=== PATIENT | female | born 1990 | race Asian ===

== ENCOUNTER 2024-08-01 16:19 | Emergency (ER) | payer OTHER, SELFPAY ==
[2024-08-01 16:24] VITALS: BP 122/81
--- NOTE | 2024-08-01 16:24 | ED.GENMED ---
ED Provider Triage
<Nabila Phillips PA-C - Last Filed: 08/01/24 16:28>
-
Patient seen by provider in Triage?: Seen in Triage
Attestation: A medical screening examination has been initiated by a qualified medical provider. Based on the assessment performed at this time, it has been determined that an emergent medical condition may exist and the patient has been informed
that further medical evaluation and possible additional diagnostic testing may be needed.
HPI: 34yoF here with a 'bad reaction to Zepbound.' Last dose last night. C/o abd pain, diarrhea, nausea, and headache. Abdominal pain is located in the epigastrium and RLQ.
GENERAL: Alert , in no apparent distress
EYE: No visual abnormalities.
NECK: Trachea midline
ENT: No visible abnormalities.
LUNGS: No acute respiratory distress
NEUROLOGICAL: Alert and oriented
SKIN: Skin intact. No visible changes.
MUSCULOSKELETAL: Moving extremities normally
PSYCH: Normal and appropriate interaction.
This is a medical evaluation conducted in person to initiate diagnostic evaluation and provide initial therapeutics. Please see further documentation by the treating clinician.
Abdominal labs, HCG, and CT abdomen ordered. ODT Zofran for nausea.
History of Present Illness
<Nabila Phillips PA-C - Last Filed: 08/01/24 16:28>
General
Chief Complaint: Abdominal Pain
Time Seen by Provider: 08/01/24 17:30
<Gardenia Barraza PA-C - Last Filed: 08/01/24 21:01>
General
Source: patient
Exam Limitations: none
Nursing documentation reviewed up to this point in time: agreed with
History of Present Illness
History of Present Illness:
Patient is a 34-year-old female presenting to the emergency department for evaluation of abdominal discomfort and nausea. She states that she woke up from sleep at 4 AM with upper abdominal discomfort and nausea. She then had multiple episodes of
diarrhea. Patient denies any vomiting. Patient also reports a headache this morning which has improved somewhat throughout the day. She also had an intermittent 'sore 'sensation in her throat. At this time�patient states she still feels very
nauseous and has upper abdominal pain. No chest pain or shortness of breath.
Patient is on Zepbound and has been on same dose for 3 months. However�first she did miss her injection dose last week. She injected her usual dose last night prior to onset of symptoms.
Patient states she has never had a reaction to Zepbound before.
Review of Systems
<Gardenia Barraza PA-C - Last Filed: 08/01/24 21:01>
Review of Systems
Allergies reviewed?: Yes
All Other Systems: ROS reviewed and negative except as documented in HPI and ROS
Phy Exam
<Gardenia Barraza PA-C - Last Filed: 08/01/24 21:01>
Physical Exam
Physical Exam:
Vitals: Patient's vital signs are stable. Afebrile
General: Patient is well appearing, no acute distress. Nontoxic appearing
Skin: Warm and dry, no rashes or lesions
Head: Normocephalic, atraumatic
Eyes: Sclera nonicteric. EOMs intact. No nystagmus.
Throat: Uvula midline. No pharyngeal erythema or tonsillar edema/exudates. Protecting airway
Neck: Normal ROM, no cervical spine tenderness, no meningismus.
Cardiac: Regular rate and rhythm, no murmurs.
Pulm: Normal respiratory effort, no wheezes, rales, rhonchi heard on exam.
Abdomen: Abdomen soft. Mild tenderness in upper abdomen without rebound tenderness or guarding. No CVA tenderness. No tenderness McBurney's point.
Extremities: No evidence of cyanosis or edema. Palpable DP pulses
Neuro: AAOx3. Grossly intact.
Psychiatric: Normal affect.
Course
<Nabila Phillips PA-C - Last Filed: 08/01/24 16:28>
Orders/Labs/Results
Orders:
Orders
08/01/24 16:22
EKG [Electrocardiogram (*1)] Urgent
Reason for Study: Other
Other Reason for Exam: throat pain
08/01/24 16:23
EKG- Treatment ONCE
08/01/24 16:25
Ondansetron Orally Disint [Zofran Odt (Orally Disintegrating)] 4 mg PO NOW STA
08/01/24 16:26
CT Abd/pelvis W Iv Cont Urgent
Comment:
Reason For Exam: Epigastric pain, RLQ pain
Test Result ONCE
08/01/24 16:28
Ondansetron Orally Disint [Zofran Odt (Orally Disintegrating)] 4 mg .ROUTE .STK-MED ONE
08/01/24 17:46
0.9% Sodium Chloride 1000 ml [Nss] 1,000 ml IV BOLUS
Ketorolac [Toradol] 15 mg IV NOW STA
Pantoprazole [Protonix IV] 40 mg IV NOW STA
08/01/24 18:04
Basic Metabolic Panel Urgent
Complete Blood Count/With Diff Urgent
HCG, Serum Qualitative Screen Urgent
Lipase Urgent
08/01/24 19:22
Tlhej-Fwfa-Cdlbymv Urgent
Potassium Urgent
Abnormal Lab Results
08/01/24
18:04
WBC 11.0 H 10^3/uL
(4.8-10.8)
RBC 5.73 H 10^6/uL
(4.20-5.40)
MCV 77.8 L fL
(81.0-99.0)
MCH 25.5 L pg
(27.0-31.0)
MCHC 32.7 L g/dL
(33.0-37.0)
RDW 14.6 H %
(11.5-14.5)
MPV 10.9 H fL
(7.4-10.4)
Absolute Neuts (auto) 6.6 H 10^3/uL
(1.4-6.5)
Absolute Lymphs (auto) 3.7 H 10^3/uL
(1.2-3.4)
Absolute Monos (auto) 0.7 H 10^3/uL
(0.1-0.6)
08/01/24 18:04
08/01/24 19:22
Vital Signs
Initial and Last Documented VS:
Initial Vital Signs
Temp Pulse Resp BP Pulse Ox
98.5 F 91 18 122/81 100
08/01/24 16:24 08/01/24 16:24 08/01/24 16:24 08/01/24 16:24 08/01/24 16:24
Last Documented Vital Signs
Temp Pulse Resp BP Pulse Ox
98.5 F 80 18 115/80 100
08/01/24 16:24 08/01/24 20:50 08/01/24 20:50 08/01/24 20:50 08/01/24 20:50
<Gardenia Barraza PA-C - Last Filed: 08/01/24 21:01>
Orders/Labs/Results
Orders:
Orders
08/01/24 16:22
EKG [Electrocardiogram (*1)] Urgent
Reason for Study: Other
Other Reason for Exam: throat pain
08/01/24 16:23
EKG- Treatment ONCE
08/01/24 16:25
Ondansetron Orally Disint [Zofran Odt (Orally Disintegrating)] 4 mg PO NOW STA
08/01/24 16:26
CT Abd/pelvis W Iv Cont Urgent
Comment:
Reason For Exam: Epigastric pain, RLQ pain
Test Result ONCE
08/01/24 16:28
Ondansetron Orally Disint [Zofran Odt (Orally Disintegrating)] 4 mg .ROUTE .STK-MED ONE
08/01/24 17:46
0.9% Sodium Chloride 1000 ml [Nss] 1,000 ml IV BOLUS
Ketorolac [Toradol] 15 mg IV NOW STA
Pantoprazole [Protonix IV] 40 mg IV NOW STA
08/01/24 18:04
Basic Metabolic Panel Urgent
Complete Blood Count/With Diff Urgent
HCG, Serum Qualitative Screen Urgent
Lipase Urgent
08/01/24 19:22
Zuwtx-Pxix-Lojlwxx Urgent
Potassium Urgent
Abnormal Lab Results
08/01/24
18:04
WBC 11.0 H 10^3/uL
(4.8-10.8)
RBC 5.73 H 10^6/uL
(4.20-5.40)
MCV 77.8 L fL
(81.0-99.0)
MCH 25.5 L pg
(27.0-31.0)
MCHC 32.7 L g/dL
(33.0-37.0)
RDW 14.6 H %
(11.5-14.5)
MPV 10.9 H fL
(7.4-10.4)
Absolute Neuts (auto) 6.6 H 10^3/uL
(1.4-6.5)
Absolute Lymphs (auto) 3.7 H 10^3/uL
(1.2-3.4)
Absolute Monos (auto) 0.7 H 10^3/uL
(0.1-0.6)
08/01/24 18:04
08/01/24 19:22
Vital Signs
Initial and Last Documented VS:
Initial Vital Signs
Temp Pulse Resp BP Pulse Ox
98.5 F 91 18 122/81 100
08/01/24 16:24 08/01/24 16:24 08/01/24 16:24 08/01/24 16:24 08/01/24 16:24
Last Documented Vital Signs
Temp Pulse Resp BP Pulse Ox
98.5 F 80 18 115/80 100
08/01/24 16:24 08/01/24 20:50 08/01/24 20:50 08/01/24 20:50 08/01/24 20:50
<Jeff Tucker MD - Last Filed: 08/01/24 20:09>
Orders/Labs/Results
Orders:
Orders
08/01/24 16:22
EKG [Electrocardiogram (*1)] Urgent
Reason for Study: Other
Other Reason for Exam: throat pain
08/01/24 16:23
EKG- Treatment ONCE
08/01/24 16:25
Ondansetron Orally Disint [Zofran Odt (Orally Disintegrating)] 4 mg PO NOW STA
08/01/24 16:26
CT Abd/pelvis W Iv Cont Urgent
Comment:
Reason For Exam: Epigastric pain, RLQ pain
Test Result ONCE
08/01/24 16:28
Ondansetron Orally Disint [Zofran Odt (Orally Disintegrating)] 4 mg .ROUTE .STK-MED ONE
08/01/24 17:46
0.9% Sodium Chloride 1000 ml [Nss] 1,000 ml IV BOLUS
Ketorolac [Toradol] 15 mg IV NOW STA
Pantoprazole [Protonix IV] 40 mg IV NOW STA
08/01/24 18:04
Basic Metabolic Panel Urgent
Complete Blood Count/With Diff Urgent
HCG, Serum Qualitative Screen Urgent
Lipase Urgent
08/01/24 19:22
Tnvjj-Liyu-Pujulbv Urgent
Potassium Urgent
Abnormal Lab Results
08/01/24
18:04
WBC 11.0 H 10^3/uL
(4.8-10.8)
RBC 5.73 H 10^6/uL
(4.20-5.40)
MCV 77.8 L fL
(81.0-99.0)
MCH 25.5 L pg
(27.0-31.0)
MCHC 32.7 L g/dL
(33.0-37.0)
RDW 14.6 H %
(11.5-14.5)
MPV 10.9 H fL
(7.4-10.4)
Absolute Neuts (auto) 6.6 H 10^3/uL
(1.4-6.5)
Absolute Lymphs (auto) 3.7 H 10^3/uL
(1.2-3.4)
Absolute Monos (auto) 0.7 H 10^3/uL
(0.1-0.6)
08/01/24 18:04
08/01/24 19:22
Vital Signs
Initial and Last Documented VS:
Initial Vital Signs
Temp Pulse Resp BP Pulse Ox
98.5 F 91 18 122/81 100
08/01/24 16:24 08/01/24 16:24 08/01/24 16:24 08/01/24 16:24 08/01/24 16:24
Last Documented Vital Signs
Temp Pulse Resp BP Pulse Ox
98.5 F 80 18 115/80 100
08/01/24 16:24 08/01/24 20:50 08/01/24 20:50 08/01/24 20:50 08/01/24 20:50
<Gardenia Barraza PA-C - Last Filed: 08/01/24 21:01>
MDM/Problems Addressed
Differential Diagnosis Includes:
Not limited to: Viral gastroenteritis, medication side effect, pancreatitis, biliary colic, cholecystitis, appendicitis, viral illness, etc.
MDM/Problems Addressed:
Patient is a 34-year-old female presenting with acute onset nausea, diarrhea, mild headache at 4 AM. No vomiting or fever. Some mild epigastric tenderness. No sick contacts. Patient does take Zepbound and missed her dose 1 week ago although did
take a dose last night prior to onset of symptoms. Patient stable vital signs and is afebrile on arrival. On exam�patient is well-appearing. Patient is conversational and nontoxic. Abdomen is soft with very mild epigastric tenderness. No
tenderness McBurney's point. Cardio/pulmonary assessment unremarkable. Patient is perfusing well with palpable distal pulses. Capillary refill within normal limits. No neurologic deficits noted. Labs initiated in triage and pending. A CT scan
abdomen/pelvis was ordered in triage and is pending. Overall suspect likely viral gastritis versus medication side effect. Lower suspicion for acute pancreatitis versus other acute abdominal infection. Will give IV fluids, Toradol, PPI, Zofran.
Will reassess
Update: Into reassess patient at bedside�patient feeling much better following medications. No longer has headache or abdominal pain. Labs reviewed. No clinically significant abnormalities. No significant leukocytosis. No electrolyte
derangements. LFTs normal. Lipase normal. test negative. CT scan without acute abnormalities�some adenopathy noted right lower quadrant suspicious for possible mesenteric adenitis. This was discussed with patient who states it is not
seen on prior scans. Will recommend following this up with primary care to ensure resolves�patient given copy of CT report. Ultimately�suspect likely viral gastroenteritis versus side effect from Zepbound. Patient has remained stable and is
currently asymptomatic. No indication for admission feel patient is stable for discharge home with primary care follow-up outpatient. Return precautions discussed. Patient seen with attending physician.
Chronic conditions affecting care:
N/A
Acute Exacerbation and/or Progression of Chronic Illness:
N/A
<Gardenia Barraza PA-C - Last Filed: 08/01/24 21:01>
*Radiology
Radiology exam reviewed: preliminary read by ED provider and radiology read reviewed
*Pulse Oximetry
Patient hypoxic: no
*EKG
Interpreted by ED Provider?: NA
*Publications Distribution Clerk Interpretation
Rate: Publications Distribution Clerk- N/A
*Critical Care Note
Total Time (30-74mins, 75-104mins- exclusive of procedures): Not Applicable
ED Attending Note
<Nabila Phillips PA-C - Last Filed: 08/01/24 16:28>
-
Portions of this chart may have been created with voice recognition software.� Occasional wrong word or��sound alike� substitutions may have occurred due to the inherent limitations of voice recognition software.
<eJff Tucker MD - Last Filed: 08/01/24 20:09>
ED Attending Note
Patient seen and examined by attending physician: Yes
I performed the substantive portion of visit, reviewed & personally made and approve the management plan that is documented in note by myself or ROMAN.: Yes
ED Attending Note:
Patient with acute onset nausea vomiting diarrhea at 4 AM. Some epigastric pain. Feels much better now. No recent antibiotics no unusual food ingestion. On exam patient is nontoxic in no distress. Abdomen is soft and nontender. Good bowel
sounds. No rebound or guarding no mass or hernia. No respiratory distress. Regular rate and rhythm. Warm and dry.
Labs show a minimal leukocytosis. Lipase is normal. Awaiting LFTs. CT scan shows mesenteric adenitis. Patient did states she has had swollen lymph nodes in the past. I stated this is something that just requires follow-up. Viral versus
medication related. More suspicious of viral however decision to continue her weight control medications need to be decided in the future with her primary physician
Discharge Plan
Departure
Patient Disposition: Home (Routine Discharge)
Date of Disposition: 08/01/24
Time of Disposition: 20:24
Patient with high blood pressure during this ER visit?: No
Condition: Good
Discharge Problem:
Nausea, Diarrhea
Instructions: Nausea and Vomiting, Adult (DC), Abdominal Pain
Prescriptions:
New
ondansetron 4 mg tablet,disintegrating
4 mg PO Q8H PRN (Reason: nausea and vomiting) Qty: 10 0RF
Referrals:
PRIVATE,PHYSICIAN [Family Provider] -
Activity Restrictions/Additional Instructions:
RETURN TO THE EMERGENCY DEPARTMENT WITH ANY FEVERS, INTRACTABLE NAUSEA/VOMITING, SEVERE ABDOMINAL PAIN, SIGNS OF SEVERE DEHYDRATION, OR ANY OTHER CONCERNS
-As discussed�your CT scan did show some swollen lymph nodes in your abdomen. This can be caused by viral illnesses. However�you should have this followed up with your primary care to ensure they resolve.
-It is very important you stay well-hydrated. Prescription for Zofran has been sent to your pharmacy that you can take for persistent nausea/vomiting.
-Continue to take all other medications as prescribed.
-Follow-up with primary care for further evaluation/management and continuation of your Zepbound
Monitor your symptoms closely return to the emergency department with any acute worsening/new symptoms or any other concerns
Interventions
Interventions:
*Risk Screen - Suicide Last Done: 08/01/24 16:24
*General Assessment Last Done: 08/01/24 16:24
*Neglect/Abuse Screening Last Done: 08/01/24 16:24
*ED COVID-19 Vaccine History Last Done: 08/01/24 16:24
YK-Wlemtc-Affsrgsdvo Assessment Last Done: 08/01/24 17:43
Discharge Date and Time
Print Language: ROMANIAN
[2024-08-01] MEDS: ZOFRAN ODT (ORALLY DISINTEGRATING) 4 MG PO (16:28)
[2024-08-01] MEDS: PROTONIX IV 40 MG IV (18:12)
[2024-08-01] MEDS: TORADOL 15 MG IV (18:12)
[2024-08-01] MEDS: NSS 1000 IV (18:13)
[2024-08-01 18:22] LABS: % Basophils 0.5 % (0-2); % Eosinophils 0.8 % (0-6); % Immature Granulocytes 0.2 % (0-0.5); % Lymphocytes 33.2 % (20.5-51.1); % Monocytes 6.1 % (1.7-9.3); % Neutrophils 59.2 % (42.2-75.2); Absolute Basophils 0.1 10^3/uL (0-0.2); Absolute Eosinophils 0.1 10^3/uL (0-0.7); Absolute Lymphocytes 3.7 10^3/uL (1.2-3.4); Absolute Monocytes 0.7 10^3/uL (0.1-0.6); Absolute Neutrophils 6.6 10^3/uL (1.4-6.5); Hematocrit 44.6 % (37.0-47.0); Hemoglobin 14.6 g/dL (12.0-16.0); Mean Corp Hgb Conc. 32.7 g/dL (33.0-37.0); Mean Corpuscular Hgb 25.5 pg (27.0-31.0); Mean Corpuscular Volume 77.8 fL (81.0-99.0); Mean Platelet Volume 10.9 fL (7.4-10.4); Nucleated Red Blood Cells % 0 %; Platelet Count 348 10^3/uL (130-400); Red Blood Cell Count 5.73 10^6/uL (4.20-5.40); Red Cell Dist. Width 14.6 % (11.5-14.5)
[2024-08-01 18:34] LABS: HCG, Serum Qualitative Screen Negative
[2024-08-01 18:41] LABS: Blood Urea Nitrogen 14 mg/dl (7-17); Calcium 9.3 mg/dl (8.4-10.2); Carbon Dioxide 24 mmol/L (22-30); Chloride 101 mmol/L (98-107); Glucose 79 mg/dl (70-99); Sodium 137 mmol/L (135-145); eGFR > 60.00
[2024-08-01 19:01] LABS: Lipase 63 U/L (23-300)
[2024-08-01 19:45] LABS: ALT (SGPT) 15 U/L (0-35); AST (SGOT) 15 U/L (14-36); Alkaline Phosphatase 52 U/L (38-126); Total Bilirubin 0.6 mg/dl (0.2-1.3); Total Protein 6.4 g/dl (6.3-8.2)
[2024-08-01 20:32] LABS: Potassium 3.8 mmol/L (3.5-5.1)
[2024-08-01 20:50] VITALS: BP 115/80
== END 2024-08-01 20:58 | disposition home or self-care (01) ==
LOC: EMR 16:19
PROVIDERS: Physician Assistant; EMERGENCY PHYSICIAN Emergency Medicine
DX: R11.0 Nausea (principal); R19.7 Diarrhea, unspecified; R10.13 Epigastric pain; R51.9 Headache, unspecified; R10.31 Right lower quadrant pain; R07.0 Pain in throat; I88.0 Nonspecific mesenteric lymphadenitis; M19.90 Unspecified osteoarthritis, unspecified site; F41.9 Anxiety disorder, unspecified; F32.A Depression, unspecified
CPT/HCPCS: 99284; 96375; 96361; 96374; 74177; 80048; 80076; 83690; 84132; 84703; 85025; Q9967